=== PATIENT | female | born 1975 | race Asian ===

== ENCOUNTER 2020-09-05 06:03 | Day surgery (SDC) | payer BC ==
[2020-09-03 10:50] VITALS: BP 118/62
[2020-09-03 11:10] LABS: BASOPHILS % (AUTO) 0.7 % (0.0-5.0); EOSINOPHILS % (AUTO) 1.2 % (0.0-8.0); HEMATOCRIT 43.1 % (36-48); LYMPHOCYTES % (AUTO) 25.6 % (21.0-51.0); MEAN CORPUSCULAR HEMOGLOBIN 30.4 pg (27.0-33.0); MEAN CORPUSCULAR VOLUME 94.9 fL (79-99); MONOCYTES % (AUTO) 7.2 % (3.0-13.0); PLATELET COUNT (AUTO) 277 K/uL (130-400); RED BLOOD CELL COUNT(AUTO) 4.54 MIL/uL (4.00-5.50); RED CELL DISTRIBUTION WIDTH 12.4 % (11.0-15.5); WHITE BLOOD COUNT (AUTO) 7.2 K/uL (4.8-10.8)
[2020-09-03 11:18] LABS: CREATININE 0.8 mg/dL (0.5-1.5); POTASSIUM 3.8 mmol/L (3.5-5.1)
[2020-09-05] VITALS (18 sets, daily range): BP systolic 87–123; BP diastolic 45–77
[~2020-09-05] VITALS: Ht 152.4 cm; Wt 93.9 kg
[~2020-09-05 06:03] MED LIST: ALBU8.5H8 IH; AMLO-257 PO; AZEL23SP NS; CAND1TAB16 PO; FLUT1AER IH; MONT10TA21 PO; ROSU10TA28 PO; SPIR25TA PO
[2020-09-05] MEDS ORDERED: CAND32TA22 PO (06:49)
[2020-09-05] MEDS ORDERED: LACTATED RINGERS 1000ML 1,000 ML IV ONE (06:53)
[2020-09-05] MEDS ORDERED: CEFAZOLIN SODIUM 1 GM VIAL ONE ×2 (06:53→07:18)
[2020-09-05] MEDS ORDERED: SUCCINYLCHOLINE CHLORIDE 20 MG/ML 10 ML VIAL ONE (07:25)
[2020-09-05] MEDS ORDERED: ONDANSETRON 4MG INJ ONE (07:25)
[2020-09-05] MEDS ORDERED: LIDOCAINE PF 100MG/5ML (2%) SYRINGE 5ML ONE (07:25)
[2020-09-05] MEDS ORDERED: PROPOFOL 10 MG/ML 20ML VIAL IV ONE (07:26)
[2020-09-05] MEDS ORDERED: MIDAZOLAM HCL 1 MG/ML 2ML VIAL ONE (07:26)
[2020-09-05] MEDS ORDERED: FENTANYL CITRATE PF 50 MCG/1 ML 2ML VIAL ONE ×2 (07:26→10:05)
[2020-09-05] MEDS ORDERED: DEXAMETHASONE SOD PHOSPHATE 10MG/ML 1ML VIAL ONE (07:26)
[2020-09-05] MEDS ORDERED: ROCURONIUM 10MG/1ML SYR 10 MG/ML ML ONE (07:26)
[2020-09-05] MEDS ORDERED: GLYCOPYRROLATE 1 MG/5 ML SYRINGE ONE (07:26)
[2020-09-05] MEDS ORDERED: NEOSTIGMINE 5MG/5ML SYR IV ONE (07:26)
[2020-09-05] MEDS ORDERED: MEPERIDINE-PF 25 MG/ML SYG ONE (07:27)
[2020-09-05] MEDS ORDERED: ROPIVACAINE 0.5% 5MG/ML 30ML IJ ONE (07:42)
[2020-09-05] MEDS ORDERED: EPHEDRINE SULFATE 50 MG/ML AMPULE ONE (08:55)
[2020-09-05] MEDS ORDERED: KETOROLAC 30MG VIAL (30MG/ML) ONE (10:05)
[2020-09-05] MEDS ORDERED: AEC81 PO (10:16)
[2020-09-05] MEDS ORDERED: CEPH500B PO (10:16)
[2020-09-05] MEDS ORDERED: HYDR-4060 PO (10:16)
== END 2020-09-05 12:15 | disposition home or self-care (01) ==
LOC: DAH 06:03
PROVIDERS: ATTEND Orthopaedic Surgery
DX: M76.61 Achilles tendinitis, right leg (principal); Z20.822 Contact with and (suspected) exposure to COVID-19; S86.011D Strain of right Achilles tendon, subsequent encounter; J45.909 Unspecified asthma, uncomplicated; I10 Essential (primary) hypertension; E66.01 Morbid (severe) obesity due to excess calories; Z68.41 Body mass index [BMI] 40.0-44.9, adult; Z98.890 Other specified postprocedural states; Z90.89 Acquired absence of other organs; Z98.51 Tubal ligation status; Z83.3 Family history of diabetes mellitus; Z82.49 Family history of ischemic heart disease and other diseases of the circulatory system
CPT/HCPCS: 27654; 36415; 64445; 76942; 80048; 85025; 87426; A4215; A4221; A4222; A4223; A4649 ×2; A4663; A4930 ×2; A6223; C1713; J0330; J0690 ×2; J1100; J1885; J2001; J2175; J2250; J2405; J2704; J2710; J2795; J3010 ×2; J3490 ×2; J7120 ×2; Q4051; U0003

== ENCOUNTER → 2022-02-03 | Outpatient (CLI) | payer BC ==
[~2022-02-03] MED LIST changes: +AEC81 PO; -CAND1TAB16 PO; +CAND32TA22 PO; +CEPH500B PO; +HYDR-4060 PO
== END | disposition home or self-care (01) ==
LOC: RAH 15:11
PROVIDERS: ATTEND Internal Medicine Critical Care Medicine
DX: J47.9 Bronchiectasis, uncomplicated (principal); J47.0 Bronchiectasis with acute lower respiratory infection
CPT/HCPCS: 71250

== ENCOUNTER → 2022-12-29 | Outpatient (CLI) | payer BC ==
[~2022-12-29] MED LIST changes: +IOHEXOL 350 MG/ML 100ML INFUS..BTL IV ONE; +MONT-46 PO; -MONT10TA21 PO
== END | disposition home or self-care (01) ==
LOC: RAH 09:14
PROVIDERS: ATTEND Internal Medicine Cardiovascular Disease
DX: I20.9 Angina pectoris, unspecified (principal); M47.815 Spondylosis without myelopathy or radiculopathy, thoracolumbar region
CPT/HCPCS: 75574; Q9967